=== PATIENT | female | born 1970 | race Caucasian/White ===

== ENCOUNTER 2016-10-04 13:22 | Emergency (ER) | payer BC ==
[~2016-10-04] VITALS: Ht 172.7 cm; Wt 125.0 kg
[2016-10-04 13:28] VITALS: TEMP 36.6; Ht 172.7 cm; Wt 125.0 kg
[2016-10-04] MEDS ORDERED: MECLIZINE HCL 25 MG TAB PO STA (14:06)
[2016-10-04 14:37] LABS: BASO % 0.2 %; BASO ABS # 0.02 K/uL (0-0.2); COMPLETE YES; EOS % 2.7 %; HEMATOCRIT 37.2 % (37-47); IG% 0.3 %; LYMPH % 31.6 %; LYMPH ABS # 3.06 K/uL (1.2-3.4); MEAN CELL VOLUME 87.7 fL (80-100); MEAN CORPUSCULAR HGB CONC 33.1 g/dl (32-36); MEAN PLATELET VOLUME 9.5 fL (7.4-10.4); NEUT % 59.2 %; PLATELET COUNT 423 K/uL (130-400); RED BLOOD COUNT 4.24 M/uL (4.2-5.4); WHITE BLOOD COUNT 9.67 K/uL (4.8-10.8)
[2016-10-04 14:52] LABS: BUN/CREATININE RATIO 13.8 (10-20); CALCIUM 8.7 mg/dl (8.5-10.1); CREATININE 0.69 mg/dl (0.60-1.20); POTASSIUM 3.8 mmol/L (3.5-5.1)
--- NOTE | 2016-10-04 15:06 | DIAGNOSTIC IMAGING REPORT ---
LEFT ELBOW 3 VIEWS HISTORY: Fall with left elbow pain. COMPARISON: None. FINDINGS: There is no fracture or dislocation. Soft tissues are unremarkable. No radiopaque foreign bodies. No joint effusion identified. IMPRESSION: No fractures. Electronically signed by: Souleymane Sahni M.D. 10/04/2016 3:04 PM Dictated Date/Time: 10/04/2016 3:02 PM
--- NOTE | 2016-10-04 15:08 | DIAGNOSTIC IMAGING REPORT ---
CERVICAL SPINE 5 VIEWS HISTORY: fall/ neck pain COMPARISON: None. FINDINGS: The cervical spine is visualized from C1 through the superior endplate of T1. There is no fracture. No subluxation. Mild disc space narrowing at C4-C5, C5-C6, and C6-C7 with small endplate osteophytes. Prevertebral soft tissues and the atlantodens interval are intact. Mild reversal of the normal lordotic curvature. This could be positional. IMPRESSION: No fracture or subluxation within the cervical spine. Electronically signed by: Souleymane Sahni M.D. 10/04/2016 3:06 PM Dictated Date/Time: 10/04/2016 3:04 PM
[2016-10-04] MEDS ORDERED: MECL-91 PO (15:46)
--- NOTE | 2016-10-04 15:47 | EMERGENCY ROOM VISIT NOTE ---
History First contact with patient: 13:51 Chief Complaint: DIZZY Stated Complaint: DIZZY, PAIN IN ARM, STIFF NECK, NAUSEA, FELL Nursing Triage Summary: Triage Note; pt reports she tripped on a rug and fell this am - pt denies any loc. pt reports several hours later she started to have left arm tingling "i fell on my arm." pt reports "around 1000 i stood up from a chair and got dizzy and have felt nauseated, i have had vertigo once before." History of Present Illness The patient is a 45 year old female who presents to the Emergency Room with complaints of falling this morning at 6 AM. The patient states that she tripped over a rug and fell forward tried to catch herself with her to arms outstretched and hit a metal door. Her left arm bent underneath her and she has a bruise to her left elbow. She denies any loss of consciousness. The patient does not think that she hit her head. The patient states she then went to work and at approximately 8:00 she felt some tingling in her left arm. She denies any associated chest pain shortness of breath or diaphoresis. She also states that her neck now feels stiff. She also states that 10 AM she noticed that when she stood up she had vertigo. She states if she gets up too fast she feels dizzy and nauseated. The patient had this once in the past. The patient has not vomited. The patient denies any head injury, visual changes. Review of Systems 10 system review was performed and was negative unless stated otherwise history of present illness. Past Medical/Surgical History Vertigo, cholecystectomy, miscarriage Social History Smoking Status: Never Smoker Smokeless Tobacco Use: No Alcohol Use: occasionally Drug Use: none Marital Status: Housing Status: lives with family Occupation Status: employed Current/Historical Medications No Active Prescriptions or Reported Meds Allergies Coded Allergies: Doxycycline (Verified Allergy, Unknown, ., 10/04/16) Sulfa Drugs (Verified Allergy, Unknown, 10/04/16) RASH LAST RX. WAS 1996 Sulfamethoxazole (Verified Allergy, Unknown, 10/04/16) Physical Exam Vital Signs Date Time Temp Pulse Resp B/P Pulse Ox O2 Delivery O2 Flow Rate FiO2 10/04/16 15:22 66 21 135/96 97 Room Air 10/04/16 14:27 64 10/04/16 14:21 73 143/90 75 151/97 73 142/91 10/04/16 13:28 36.6 69 18 162/116 98 Room Air Physical Exam GENERAL: 45-year-old white female appears in no acute distress. MENTAL Status: Alert and oriented 3. HEAD: Atraumatic, nontender to palpation throughout. EYES: PERRLA. EOMs intact. EARS: Canals clear. TMs without fluid level noted. NECK: Supple, no lymphadenopathy noted. No carotid bruits noted. LUNGS: Clear auscultation without wheezes rales or rhonchi. CARDIAC: Regular rate and rhythm without murmur. Pulses is full and equal throughout. NEURO:Cranial nerves two through 12 intact. Cerebellar function intact with [id number]. Fine motor intact with alternating finger motions. CERVICAL SPINE: No gross bony deformity noted. The patient is nontender to palpation over the spinous processes in the paravertebral region. The patient has full range of motion. LEFT UPPER EXTREMITY: Patient has full range of motion of the shoulder elbow and wrist. The patient has ecchymosis and edema over the elbow. Medical Decision & Procedures ER Provider Diagnostic Interpretation: CERVICAL SPINE 5 VIEWS HISTORY: fall/ neck pain COMPARISON: None. FINDINGS: The cervical spine is visualized from C1 through the superior endplate of T1. There is no fracture. No subluxation. Mild disc space narrowing at C4-C5, C5-C6, and C6-C7 with small endplate osteophytes. Prevertebral soft tissues and the atlantodens interval are intact. Mild reversal of the normal lordotic curvature. This could be positional. IMPRESSION: No fracture or subluxation within the cervical spine. Electronically signed by: Souleymane Sahni M.D. 10/04/2016 3:06 PM Dictated Date/Time: 10/04/2016 3:04 PM LEFT ELBOW 3 VIEWS HISTORY: Fall with left elbow pain. COMPARISON: None. FINDINGS: There is no fracture or dislocation. Soft tissues are unremarkable. No radiopaque foreign bodies. No joint effusion identified. IMPRESSION: No fractures. Electronically signed by: Souleymane Sahni M.D. 10/04/2016 3:04 PM Dictated Date/Time: 10/04/2016 3:02 PM Laboratory Results 10/04/16 14:16 Red Blood Count 4.24, Mean Corpuscular Volume 87.7, Mean Corpuscular Hemoglobin 29.0, Mean Corpuscular Hemoglobin Concent 33.1, Mean Platelet Volume 9.5, Neutrophils (%) (Auto) 59.2, Lymphocytes (%) (Auto) 31.6, Monocytes (%) (Auto) 6.0, Eosinophils (%) (Auto) 2.7, Basophils (%) (Auto) 0.2, Neutrophils # (Auto) 5.72, Lymphocytes # (Auto) 3.06, Monocytes # (Auto) 0.58, Eosinophils # (Auto) 0.26, Basophils # (Auto) 0.02 10/04/16 14:16 Test 10/04/16 14:16 White Blood Count 9.67 K/uL (4.8-10.8) Red Blood Count 4.24 M/uL (4.2-5.4) Hemoglobin 12.3 g/dL (12.0-16.0) Hematocrit 37.2 % (37-47) Mean Corpuscular Volume 87.7 fL (80-100) Mean Corpuscular Hemoglobin 29.0 pg (25-34) Mean Corpuscular Hemoglobin Concent 33.1 g/dl (32-36) Platelet Count 423 K/uL (130-400) Mean Platelet Volume 9.5 fL (7.4-10.4) Neutrophils (%) (Auto) 59.2 % Lymphocytes (%) (Auto) 31.6 % Monocytes (%) (Auto) 6.0 % Eosinophils (%) (Auto) 2.7 % Basophils (%) (Auto) 0.2 % Neutrophils # (Auto) 5.72 K/uL (1.4-6.5) Lymphocytes # (Auto) 3.06 K/uL (1.2-3.4) Monocytes # (Auto) 0.58 K/uL (0.11-0.59) Eosinophils # (Auto) 0.26 K/uL (0-0.5) Basophils # (Auto) 0.02 K/uL (0-0.2) RDW Standard Deviation 49.5 fL (36.4-46.3) RDW Coefficient of Variation 15.4 % (11.5-14.5) Immature Granulocyte % (Auto) 0.3 % Immature Granulocyte # (Auto) 0.03 K/uL (0.00-0.02) Anion Gap 11.0 mmol/L (3-11) Est Creatinine Clear Calc Drug Dose 142.1 ml/min Estimated GFR () 121.0 Estimated GFR (Non- 104.4 BUN/Creatinine Ratio 13.8 (10-20) Calcium Level 8.7 mg/dl (8.5-10.1) Medications Administered Medications (Trade) Dose Ordered Sig/Delmar Route Start Time Stop Time Status Last Admin Dose Admin Meclizine HCl (Antivert Tab) 25 mg NOW STAT PO 10/04/16 14:06 10/04/16 14:07 DC 10/04/16 14:34 25 MG ECG Indication: other (dizziness) Rhythm: normal sinus Findings: no acute ischemic change ED Course The patient was evaluated. IV access was obtained. CBC and differential, renal profile was ordered. EKG was ordered and interpreted by myself as above without any acute findings. Orthostatic vitals were ordered and reviewed. Patient's blood pressure did drop from a sitting to a standing position but not diagnostic of orthostatic hypotension. Labs are reviewed and were unremarkable. X-ray of the left elbow and cervical spine were ordered and interpreted by the radiologist and myself as above without any acute findings. The patient was given meclizine 25 mg by mouth.The patient was reevaluated. The patient was informed of all findings and discharged home in stable condition.. Medical Decision Differential diagnosis for the neck and elbow were contusion versus fracture Differential diagnosis with her dizziness include orthostatic hypotension, acute labyrinthitis, cardiac arrhythmia, benign positional vertigo Impression Primary Impression: Vertigo Additional Impressions: Neck pain, acute Left elbow contusion Departure Information Dispostion Home / Self-Care Condition GOOD Prescriptions Meclizine HCl (Meclizine 25) 25 Mg Tab 1 TAB PO TID for Dizziness or Vertigo, #20 Prov: Deborah Aguayo PA-C 10/04/16 Referrals Patrick Morejon D.O.[facility]. (PCP) Forms HOME CARE DOCUMENTATION FORM, IMPORTANT VISIT INFORMATION Patient Instructions ED Vertigo Unspecified, My [facility] [place] Additional Instructions Get up slowly to prevent dizziness. Take meclizine as needed for dizziness. This may make you drowsy. Ibuprofen 600 mg every 6 hours with food for neck and elbow pain. Ice the elbow intermittently over the next 24 hours. You most likely will feel worse tomorrow within the next day you should slowly start improving. If symptoms continue to worsen, follow-up with your family doctor. Problem Qualifiers
[2016-10-04 16:16] VITALS: BP 132/91; PULSE 71; O2SAT 95
== END 2016-10-04 16:18 | disposition home or self-care (01) ==
LOC: C.EDB 13:26
DX: R42 Dizziness and giddiness (principal); M54.2 Cervicalgia; S50.02XA Contusion of left elbow, initial encounter; W01.198A Fall on same level from slipping, tripping and stumbling with subsequent striking against other object, initial encounter; Y93.89 Activity, other specified; Y92.89 Other specified places as the place of occurrence of the external cause; Y99.8 Other external cause status

== ENCOUNTER → 2016-10-17 | Outpatient (CLI) | payer BC ==
[~2016-10-17] MED LIST: MECL-91 PO
--- NOTE | 2016-10-18 13:09 | MAMMOGRAPHY REPORT ---
BILATERAL DIGITAL SCREENING MAMMOGRAM TOMOSYNTHESIS WITH CAD: 10/17/2016 CLINICAL HISTORY: Routine screening. Patient has no complaints. TECHNIQUE: Breast tomosynthesis in addition to standard 2D mammography was performed. Current study was also evaluated with a Computer Aided Detection (CAD) system. COMPARISON: Comparison is made to exams dated: 09/21/2015 mammogram, 10/07/2003 mammogram, 09/30/2015 mammogram, and 09/30/2015 ultrasound - [facility]. BREAST COMPOSITION: There are scattered areas of fibroglandular density in both breasts. FINDINGS: The parenchymal pattern is unchanged. There is a stable ribbon shaped metallic biopsy ma rker in the 3:00 right breast. No developing mass, architectural distortion or cluster of suspiciou s microcalcifications is seen. IMPRESSION: ACR BI-RADS CATEGORY 2: BENIGN There is no mammographic evidence of malignancy. A 1 year screening mammogram is recommended. The p atient will receive written notification of the results. Approximately 10% of breast cancers are not detected with mammography. A negative mammographic repor t should not delay biopsy if a clinically suggestive mass is present. Irene Still M.D. ay/:10/17/2016 17:10:12 [facility] Worker: Stephanie COTE(Blas)(M), [facility] letter sent: Normal 1/2 BI-RADS Code: ACR BI-RADS Category 2: Benign
== END | disposition home or self-care (01) ==
LOC: C.MAMM 07:06
PROVIDERS: ATTEND Family Medicine
DX: Z12.31 Encounter for screening mammogram for malignant neoplasm of breast (principal)

== ENCOUNTER → 2017-08-18 | Outpatient (CLI) | payer BC | END | disposition home or self-care (01) | LOC: C.PAPS 13:26 | PROVIDERS: ATTEND Physician Assistant | DX: Z01.419 Encounter for gynecological examination (general) (routine) without abnormal findings (principal) ==

== ENCOUNTER → 2017-10-23 | Outpatient (CLI) | payer OTHER ==
--- NOTE | 2017-10-24 12:57 | MAMMOGRAPHY REPORT ---
BILATERAL DIGITAL SCREENING MAMMOGRAM TOMOSYNTHESIS WITH CAD: 10/23/2017 CLINICAL HISTORY: Routine screening. Patient has no complaints. TECHNIQUE: Breast tomosynthesis in addition to standard 2D mammography was performed. Current study was also evaluated with a Computer Aided Detection (CAD) system. COMPARISON: Comparison is made to exams dated: 10/17/2016 mammogram, 09/30/2015 ultrasound, 09/30/2015 m ammogram, 09/21/2015 mammogram, 10/15/2003 mammogram, and 10/07/2003 mammogram - [facility]. BREAST COMPOSITION: There are scattered areas of fibroglandular density in both breasts. FINDINGS: There is a stable circumscribed mass with associated ribbon-shaped biopsy marker clip in th e medial right breast. No new suspicious mass, architectural distortion or cluster of microcalcifica tions is seen. IMPRESSION: ACR BI-RADS CATEGORY 1: NEGATIVE There is no mammographic evidence of malignancy. A 1 year screening mammogram is recommended. The pa tient will receive written notification of the results. Approximately 10% of breast cancers are not detected with mammography. A negative mammographic report should not delay biopsy if a clinically suggestive mass is present. Irene Still M.D. ay/:10/23/2017 16:23:18 [employer] Se[employer] Trimmer: Maria Antonia ABREU)(M), [facility] letter sent: Normal 1/2 BI-RADS Code: ACR BI-RADS Category 1: Negative
== END | disposition home or self-care (01) ==
LOC: C.MAMM 07:14
PROVIDERS: ATTEND Physician Assistant
DX: Z12.31 Encounter for screening mammogram for malignant neoplasm of breast (principal)